=== PATIENT | female | born 1995 | race Caucasian/White ===

== ENCOUNTER 2017-01-06 00:14 | Emergency (ER) | payer BC ==
[~2017-01-06] VITALS: Ht 170.2 cm; Wt 78.3 kg
[~2017-01-06 00:14] MED LIST: AMT25 PO; BCPILLS PO; CIPR-255 PO; CPR500 PO; PHEN-876 PO; SERT-234 PO
[2017-01-06 00:25] VITALS: TEMP 36.9; Ht 170.2 cm; Wt 78.3 kg
[2017-01-06] MEDS ORDERED: SODIUM CHLORIDE 0.9% 1000ML 1,000 ML IV STA ×2 (00:59)
[2017-01-06] MEDS ORDERED: KETOROLAC TROMETHAMINE 30 MG/ML VIAL IV STA (00:59)
[2017-01-06] MEDS ORDERED: ONDANSETRON INJ 2 MG/ML 2 ML VIAL IV STA (00:59)
[2017-01-06 01:27] LABS: BASO % 0.5 %; BASO ABS # 0.04 K/uL (0-0.2); COMPLETE YES; EOS % 3.5 %; HEMATOCRIT 35.2 % (37-47); IG% 0.3 %; LYMPH % 29.6 %; MEAN CELL VOLUME 81.7 fL (80-100); MEAN CORPUSCULAR HEMOGLOBIN 28.1 pg (25-34); MEAN CORPUSCULAR HGB CONC 34.4 g/dl (32-36); MEAN PLATELET VOLUME 9.1 fL (7.4-10.4); MONO % 6.7 %; NEUT % 59.4 %; PLATELET COUNT 276 K/uL (130-400); RED BLOOD COUNT 4.31 M/uL (4.2-5.4); WHITE BLOOD COUNT 7.44 K/uL (4.8-10.8)
[2017-01-06 01:40] LABS: URINE APPEARANCE CLEAR (CLEAR); URINE BILIRUBIN NEG (NEG); URINE COLOR DK YELLOW; URINE EPITHELIAL CELL AUTO 20-30 /lpf (0-5); URINE NITRITE POS (NEG); URINE PH 5.5 (4.5-7.5); URINE SPECIFIC GRAVITY 1.024 (1.000-1.030); UROBILINOGEN NEG (NEG); ZZUR CULT IF INDIC CLEAN CATCH YES
[2017-01-06 01:44] LABS: MANUAL MICROSCOPIC REQUIRED? NO; REVIEW REQ? NO
[2017-01-06 01:44] LABS: BUN/CREATININE RATIO 17.1 (10-20); CALCIUM 8.6 mg/dl (8.5-10.1); CREATININE 0.74 mg/dl (0.60-1.20); POTASSIUM 3.9 mmol/L (3.5-5.1)
[2017-01-06 01:47] LABS: PREG INTERNAL NEGATIVE QC NEG CLEAR BACKGROUND; PREG INTERNAL POSITIVE QC POS CONTROL LINE
--- NOTE | 2017-01-06 03:04 | EMERGENCY ROOM VISIT NOTE ---
History First contact with patient: 00:53 Chief Complaint: VOMITING Stated Complaint: SEEN FOR UTI/KIDNEY INFECTION,NOW VOMITING Nursing Triage Summary: Pt seen yesterday at urgent care for uti/kidney infection r/t burning on urination and back pain. Sent home on medications and told to come to ED if patient developed nausea. Pt states she started feeling nauseous this evening. History of Present Illness The patient is a 21 year old female who presents to the Emergency Room with complaints of low back pain that is greater on the left flank that radiates to her groin with urinary symptoms for the past few days. Patient went to urgent care yesterday was placed on Cipro for possible kidney infection. Patient states since then she feels nauseous from the antibiotic. Pain currently 5 out of 10. Nothing makes it better or worse. Patient denies chest pain, dyspnea, fever, chills, vaginal itching or discharge. No history kidney stones. Review of Systems See HPI for pertinent positives & negatives. A total of 10 systems reviewed and were otherwise negative. Past Medical/Surgical History Medical Problems: (1) No significant medical problems Surgical Problems: (1) No significant past surgical history Social History Smoking Status: Never Smoker Alcohol Use: occasionally Drug Use: none Marital Status: in relationship Occupation Status: [employer] Current/Historical Medications Scheduled Control Pills ( Control Pills), 1 TAB PO DAILY Ciprofloxacin (Ciprofloxacin HCl), 500 MG PO Q12 Phenazopyridine HCl (Pyridium), 200 MG PO Q8 Sertraline (Zoloft), 100 MG PO HS Scheduled PRN Amitriptyline HCl (Amitriptyline HCl), 50 MG PO HS PRN for Sleep Allergies Coded Allergies: Cefdinir (Unverified Allergy, Unknown, HIVES, 01/06/17) Sodium Benzoate (Unverified Allergy, Unknown, HIVES, 01/06/17) Physical Exam Vital Signs Date Time Temp Pulse Resp B/P (MAP) Pulse Ox O2 Delivery O2 Flow Rate FiO2 01/06/17 02:33 89 18 94/62 97 Room Air 01/06/17 00:25 36.9 99 18 120/67 97 Room Air Physical Exam VITALS: Vitals are noted on the nurse's note and reviewed by myself. Vital signs stable. GENERAL: Pleasant female, in no acute distress, nondiaphoretic, well-developed well-nourished. SKIN: The skin was without rashes, erythema, edema, or bruising. There is no tenting of the skin. Capillary reflex less than 2 seconds. HEAD: Normocephalic atraumatic. EARS: External auditory canals clear, tympanic membranes pearly butler without erythema or effusion bilaterally. EYES: Pupils equal round and reactive to light and accommodation. Conjunctivae without injection, sclerae without icterus. Extraocular movements intact. NOSE: Patent, turbinates without inflammation or discharge. MOUTH: Mucous membranes moist. Pharynx without erythema or exudate. Uvula midline. Airway patent. Tongue does not deviate. NECK: Supple without nuchal rigidity. No lymphadenopathy. No thyromegaly. Cervical spine is nontender. No JVD. HEART: Regular rate and rhythm without murmurs gallops or rubs. LUNGS: Clear to auscultation bilaterally without wheezes, rales or rhonchi. No dullness to percussion. No retractions or accessory muscle use. ABDOMEN: Positive bowel sounds x 4. Normal tympanic percussion. Soft, nontender, without masses or organomegaly. Linda sign negative. No guarding or rebound tenderness. Left CVA tenderness MUSCULOSKELETAL: No muscle atrophy, erythema, or edema noted. NEURO: Patient was alert and oriented to person place and time. Normal sensation to light and sharp touch. No focal neurological deficits. Medical Decision & Procedures Laboratory Results 01/06/17 01:13 Red Blood Count 4.31, Mean Corpuscular Volume 81.7, Mean Corpuscular Hemoglobin 28.1, Mean Corpuscular Hemoglobin Concent 34.4, Mean Platelet Volume 9.1, Neutrophils (%) (Auto) 59.4, Lymphocytes (%) (Auto) 29.6, Monocytes (%) (Auto) 6.7, Eosinophils (%) (Auto) 3.5, Basophils (%) (Auto) 0.5, Neutrophils # (Auto) 4.42, Lymphocytes # (Auto) 2.20, Monocytes # (Auto) 0.50, Eosinophils # (Auto) 0.26, Basophils # (Auto) 0.04 01/06/17 01:13 Test 01/06/17 00:40 01/06/17 01:13 Urine Color DK YELLOW Urine Appearance CLEAR (CLEAR) Urine pH 5.5 (4.5-7.5) Urine Specific [place] 1.024 (1.000-1.030) Urine Protein TRACE (NEG) Urine Glucose (UA) NEG (NEG) Urine Ketones NEG (NEG) Urine Occult Blood NEG (NEG) Urine Nitrite POS (NEG) Urine Bilirubin NEG (NEG) Urine Urobilinogen NEG (NEG) Urine Leukocyte Esterase MODERATE (NEG) Urine WBC (Auto) >30 /hpf (0-5) Urine RBC (Auto) 0-4 /hpf (0-4) Urine Hyaline Casts (Auto) 10-30 /lpf (0-5) Urine Epithelial Cells (Auto) 20-30 /lpf (0-5) Urine Bacteria (Auto) NEG (NEG) White Blood Count 7.44 K/uL (4.8-10.8) Red Blood Count 4.31 M/uL (4.2-5.4) Hemoglobin 12.1 g/dL (12.0-16.0) Hematocrit 35.2 % (37-47) Mean Corpuscular Volume 81.7 fL (80-100) Mean Corpuscular Hemoglobin 28.1 pg (25-34) Mean Corpuscular Hemoglobin Concent 34.4 g/dl (32-36) Platelet Count 276 K/uL (130-400) Mean Platelet Volume 9.1 fL (7.4-10.4) Neutrophils (%) (Auto) 59.4 % Lymphocytes (%) (Auto) 29.6 % Monocytes (%) (Auto) 6.7 % Eosinophils (%) (Auto) 3.5 % Basophils (%) (Auto) 0.5 % Neutrophils # (Auto) 4.42 K/uL (1.4-6.5) Lymphocytes # (Auto) 2.20 K/uL (1.2-3.4) Monocytes # (Auto) 0.50 K/uL (0.11-0.59) Eosinophils # (Auto) 0.26 K/uL (0-0.5) Basophils # (Auto) 0.04 K/uL (0-0.2) RDW Standard Deviation 38.5 fL (36.4-46.3) RDW Coefficient of Variation 12.6 % (11.5-14.5) Immature Granulocyte % (Auto) 0.3 % Immature Granulocyte # (Auto) 0.02 K/uL (0.00-0.02) Anion Gap 8.0 mmol/L (3-11) Est Creatinine Clear Calc Drug Dose 129.6 ml/min Estimated GFR () 134.2 Estimated GFR (Non- 115.8 BUN/Creatinine Ratio 17.1 (10-20) Calcium Level 8.6 mg/dl (8.5-10.1) Magnesium Level 2.0 mg/dl (1.8-2.4) Total Creatine Kinase 61 U/L (26-192) Human Chorionic Gonadotropin, Qual NEG (NEG) Medications Administered Medications (Trade) Dose Ordered Sig/Jacki Route Start Time Stop Time Status Last Admin Dose Admin Ketorolac Tromethamine (Toradol Inj) 30 mg NOW STAT IV 01/06/17 00:59 01/06/17 01:02 DC 01/06/17 01:18 30 MG Ondansetron HCl (Zofran Inj) 4 mg NOW STAT IV 01/06/17 00:59 01/06/17 01:02 DC 01/06/17 01:19 4 MG Sodium Chloride 1,000 ml @ 999 mls/hr Q1H1M STAT IV 01/06/17 00:59 01/06/17 01:59 DC 01/06/17 01:17 999 MLS/HR Sodium Chloride 1,000 ml @ 125 mls/hr Q8H STAT IV 01/06/17 00:59 01/06/17 08:58 01/06/17 02:32 125 MLS/HR ED Course Prior records/ancillary studies reviewed. Triage Nursing notes reviewed. Additional history obtained from the family. The patient's history was concerning for flank pain. Differential diagnosis: Etiologies such as renal colic, appendicitis, diverticulitis, mesenteric ischemia, aortic pathology, infections, inflammatory bowel disease, PUD, biliary pathology, UTI, as well as others were entertained. Physical examination findings: As above. ER treatment provided: Toradol, Zofran, IV fluids On reassessment the patient felt better. Diagnostic interpretation by me: The labs revealed no leukocytosis negative hCG. Urine concerning for infection and sent for culture Imaging studies: CT of the abdomen and pelvis negative for stone or appendicitis Exam and history seem concerning for UTI versus pyelonephritis. Patient was getting worse on the Cipro so she was switched to Bactrim. She is advised to drink plenty of fluids to flush her bladder and follow-up family care in a few days or here in the ER sooner for fevers, vomiting, worsening signs or symptoms or as needed. CT was negative for acute findings. By the evaluation outlined above emergent etiologies such as appendicitis, diverticulitis, mesenteric ischemia, aortic pathology, inflammatory bowel disease, PUD, biliary pathology, as well as others were deemed relatively unlikely. The pt informed about the findings as listed above. All questions were answered and pleased with the treatment. Return instructions were outlined and the patient was discharged in stable condition. Outpatient prescription management: Bactrim, Zofran Referral: The patient was referred back to their primary care physician for follow-up in 2 to 3 days for a recheck of the current condition. Case reviewed by attending. Medical Decision As above Impression Primary Impression: Pyelonephritis Departure Information Dispostion Home / Self-Care Condition GOOD Referrals [facility] (PCP) Patient Instructions [facility] Additional Instructions Stop your Cipro and began: Trimethoprim-Sulfamethoxazole(Bactrim DS): Take one pill twice daily for 7 days for your urine infection. All antibiotics can cause diarrhea. If this occurs and you feel worse or it does not resolve in 1-2 days follow up with your doctor or return to the Emergency Department as this could be signs of serious underlying problems. Any medication can cause an allergic reaction, stop the pills immediately and return to the ER for rash, hives, breathing difficulties, or swelling. Pyridium 200mg: Take one pill three times daily as needed for urinary discomfort. This medication will turn your urine orange. This is normal and nothing to be concerned about. Zofran 4 mg: Take one every six hours as needed for nausea. Avoid alcohol, operating machinery or dangerous equipment, working on ladders or roofs, DRIVING , or situations where being under the influence may be dangerous. Ibuprofen(Motrin, Advil) may be used for fever or pain. Use 600mg every six hours as needed. Take with food. Avoid using more than 2400mg in a 24 hour period. Do not use 2400mg per day for more than three consecutive days without physician direction. Prolonged inappropriate use can lead to stomach upset or ulcers. (AND/OR) Acetaminophen(Tylenol) may be used for fever or pain. Use 1000mg every six hours as needed. Avoid using more than 3000mg in a 24 hour period. Rest and drink plenty of fluids as tolerated. Slow sips of water or sports drinks are recommended instead of large amounts all at once. Continue current medications. Once your stomach is settled start with a clear liquid diet (jello, soup broth, etc.) and then advance as tolerated. You should avoid full, heavy meals for about 24 hrs from the time your symptoms resolved. Return to the ER immediately for worsening or persistent abdominal/back pain, vomiting, fevers, worsening of your condition, or as needed. Follow up with your primary physician within 2-3 days for a recheck of the current condition.
[2017-01-06] MEDS ORDERED: ONDANSETRON HOME PACK 4MG OD TAB PO ONE (03:15)
[2017-01-06] MEDS ORDERED: SULF800T23 PO (03:15)
[2017-01-06] MEDS ORDERED: ONDA4TAB10 SL (03:15)
[2017-01-06] MEDS ORDERED: SEPTRA DS HOME PACK 1 EA VIAL PO ONE (03:15)
[2017-01-06 03:22] VITALS: BP 109/67; PULSE 92; O2SAT 97
--- NOTE | 2017-01-06 07:08 | DIAGNOSTIC IMAGING REPORT ---
ABD/PELVIS WITHOUT FOR STONE HISTORY:21 yearsFemaleflank pain, concern for renal calculus COMPARISON: 09/23/2015 CT study TECHNIQUE: Multiple axial CT images of the abdomen and pelvis were obtained without contrast. FINDINGS: Lung bases are clear. No pneumoperitoneum. Inferior cardiac chambers are unremarkable. The liver, spleen, gallbladder, pancreas and adrenal glands appear to be within normal limits. No renal calculi or hydronephrosis. Kidneys, ureters, urinary bladder, uterus and adnexa are unremarkable. Phleboliths are again seen within the pelvis. The abdominal aorta is normal in both course and caliber. There is no bulky retroperitoneal adenopathy. No bowel obstruction. There is moderate volume of formed stool throughout the colon. The appendix appears normal while seen on image 63 of the axial series within the right lower quadrant of the abdomen. Soft tissues are within normal limits. Bones appear intact. IMPRESSION: 1. No acute intra-abdominal or pelvic abnormality identified, specifically no renal calculi or hydronephrosis. 2. Normal appendix. The above report was generated using voice recognition software. It may contain grammatical, syntax or spelling errors. Electronically signed by: Geraldo Gipson M.D. 01/06/2017 7:07 AM Dictated Date/Time: 01/06/2017 7:02 AM
== END 2017-01-06 03:22 | disposition home or self-care (01) ==
LOC: C.EDB 00:16
DX: N12 Tubulo-interstitial nephritis, not specified as acute or chronic (principal); Z79.3 Long term (current) use of hormonal contraceptives; Z79.899 Other long term (current) drug therapy